=== PATIENT | female | born 1995 | race Caucasian/White ===

== ENCOUNTER 2017-08-11 17:29 | Emergency (ER) | payer OTHER ==
[2017-08-11 17:50] VITALS: TEMP 97.7
--- NOTE | 2017-08-11 18:19 | EDPHY ---
H & P Time Seen by Provider: 08/11/17 18:13 HPI/ROS: CHIEF COMPLAINT: Seizure HISTORY OF PRESENT ILLNESS: The patient is a 21 y/o female arriving via EMS for a witnessed seizure. She had one grand mal seizure in 8th grade attributed to overheating while using too many blankets when she had mono. She had a full workup at the time and was not started on any medications for the seizure. Today , she was sitting outside after class when she had a generalized seizure. She has no memory of the seizure and her next memory is waking up in the hospital. She has jaw pain, hematoma from striking her head, and mild headache. She denies biting her tongue, or any other injuries or symptoms. She has been drinking heavily this weekend and took what she believes is Xanax. She denies recent fever or cold, meth use, or cocaine use. She took Xanax for several years for depression but hadn't recently used Xanax until this weekend. REVIEW OF SYSTEMS: A 10 point review of systems was performed and is negative with the exception of the elements mentioned in the history of present illness. Past Medical/Surgical History: Depression, seizure from overheating Social History: [employer] student, studying [employer], graduating in October Smoking Status: Never smoked Physical Exam: General Appearance: Alert, pleasant, tearful Head: Large hematoma to the left forehead Eyes: Pupils equal and round, no conjunctival pallor or injection ENT, Mouth: Mucous membranes moist, able to open/close mouth fully with minimal discomfort Neck: Normal inspection, NT, ROM without pain Respiratory: Lungs are clear to auscultation, no chest wall tenderness Cardiovascular: Regular rate and rhythm Gastrointestinal: Abdomen is soft and non-tender Neurological: A&O, CN II-Xii intact, motor/sensory intact, normal gait Skin: Warm and dry, no rash Extremities: Nontender, no pedal edema Psychiatric: tearful at times Constitutional: Initial Vital Signs Temperature (C) 36.5 C 08/11/17 17:29 Heart Rate 53 L 08/11/17 17:29 Respiratory Rate 16 08/11/17 17:29 Blood Pressure 116/68 08/11/17 17:29 O2 Sat (%) 99 08/11/17 17:29 O2 Delivery Mode Room Air Allergies/Adverse Reactions: No Known Allergies Allergy (Unverified 07/04/16 16:42) Home Medications: Medication Instructions Recorded Hebert 12/17/15 Zoloft 25mg (*) 08/11/17 Medical Decision Making - Diagnostics Imaging Results: Head CT 08/11/17 18:15 Impression: Normal. Results discussed with Yesica Cantu PA-C. 11 August 2017 at 1908 hours. ED Course/Re-evaluation: The patient presents after a generalized seizure. She is now back to normal mental status and has a normal neuro exam. Seizure most likely secondary to drug use, though given prior sz several years ago, possibly secondary to primary sz disorder. No evidence of fracture or significant injury related to sz. Will obs. Labs/CT ordered. Evaluation, including laboratory analysis and CT scan, unremarkable. Neuro exam remains normal. Seizure precautions given, including instructions not to drive until she is cleared by a neurologist. Differential Diagnosis: Differential diagnosis includes though it is not limited to status epilepticus, hypoglycemia, intracranial hemorrhage, CVA, benzodiazepine withdrawal, alcohol withdrawal, epilepsy. - Data Points Laboratory Results: Laboratory Results 08/11/17 17:40 08/11/17 19:10 Medications Given: Discontinued Medications Sodium Chloride (Ns) 1,000 mls @ 0 mls/hr IV ONCE ONE; Wide Open PRN Reason: Protocol Stop: 08/11/17 18:43 Last Admin: 08/11/17 19:13 Dose: 1,000 mls Departure - Departure Disposition: Home, Routine, Self-Care Clinical Impression: Seizure Condition: Good Instructions: New-Onset Seizure in Adults (ED) Additional Instructions: 1. No driving until you are cleared by a neurologist to drive. 2. No dangerous activities such as riding a ski lift, swimming in a pool or other behavior that could put you or someone else at risk in the event of a recurrent seizure. You will need to be cleared by a neurologist to resume these activities. 3. Please return to the ED for recurrent seizure, headache, numbness, weakness, altered mental status or other concerns. 4. Please call the referral neurologist promptly to schedule a follow-up appointment. Referrals: Brayan Lyons DO [Doctor of Osteopathy] - As per Instructions (Call to make an appointment. ) Report Scribed for: Nova Mathews Report Scribed by: Eli Pearce Date of Report: 08/11/17 Time of Report: 18:19 Physician Review and Approval Statement: 08/11/17 18:19 Portions of this note were transcribed by a medical information specialist. I personally performed a history, physical exam, medical decision making, and confirmed accuracy of information the transcribed note.
[2017-08-11 18:20] LABS: PLATELET COUNT 438 10^3/uL (150-400)
[2017-08-11] MEDS ORDERED: NS 1,000 ML IV ONE (18:42)
[2017-08-11 20:18] VITALS: BP 105/63; PULSE 61; RESP 16; O2SAT 99
== END 2017-08-11 20:33 | disposition home or self-care (01) ==
LOC: EDUNIT#
DX: G40.909 Epilepsy, unspecified, not intractable, without status epilepticus (principal); E86.9 Volume depletion, unspecified
CPT/HCPCS: 80305

== ENCOUNTER 2017-11-12 10:30 | Emergency (ER) | payer OTHER ==
--- NOTE | 2017-11-12 10:41 | EDPHY ---
H & P Smoking Status: Never smoked Time Seen by Provider: 11/12/17 10:31 HPI/ROS: CHIEF COMPLAINT: Altered mental status, substance abuse HISTORY OF PRESENT ILLNESS: 21-year-old female presents to the emergency department by ambulance with altered mental status. The patient was found at a local store and had an antalgic gait and was confused. Upon arrival by EMS, the patient admits to smoking marijuana, abusing cocaine and Xanax over last 3 days. She also admits to drinking alcohol. The patient denies suicidal or homicidal ideation. She states that she does feel depressed. Denies any injuries or trauma. Denies headache. Denies neck or back pain. Denies chest pain or difficulty breathing. REVIEW OF SYSTEMS: Constitutional: No fever, no chills. Eyes: No double or blurry vision. ENT: No sore throat. Respiratory: No cough, no shortness of breath. Cardiac: No chest pain. Gastrointestinal: No abdominal pain, vomiting or diarrhea. Genitourinary: No dysuria. Musculoskeletal: No neck or back pain. Skin: No rashes. Neurological: No headache. (RyderDorcas) Past Medical/Surgical History: Depression, substance abuse (RyderDorcas) Social History: Recent graduate from [employer] (JenaDorcas garcia) Physical Exam: General Appearance: Lethargic, tearful. No visible signs of trauma to her head. She is mentating normally and answering questions appropriately. Eyes: Pupils equal and round. Extraocular motions are all intact. ENT: Mouth: Mucous membranes moist. Respiratory: No wheezing, rhonchi, or rales, lungs are clear to auscultation. Cardiovascular: Regular rate and rhythm. Gastrointestinal: Abdomen is soft and nontender, no masses, no rebound or guarding, bowel sounds normal. Neurological: Alert and oriented x 3, cranial nerves II through XII grossly intact Skin: Warm and dry, no rashes. Musculoskeletal: Nontender to palpate along the cervical, thoracic or lumbar spine. Neck is supple. Extremities: Full range of motion and no peripheral edema. Psychiatric: Patient is oriented X 3, there is no agitation. (RyderDorcas) Constitutional: Initial Vital Signs Temperature (C) 36.5 C 11/12/17 10:42 Heart Rate 115 H 11/12/17 10:42 Respiratory Rate 16 11/12/17 10:42 Blood Pressure 116/67 11/12/17 10:42 O2 Sat (%) 97 11/12/17 10:42 O2 Delivery Mode Room Air Allergies/Adverse Reactions: No Known Allergies Allergy (Unverified 12/17/15 16:42) Home Medications: Medication Instructions Recorded Concerta 12/17/15 Zoloft 25mg (*) 08/11/17 Medical Decision Making ED Course/Re-evaluation: 3:45 p.m.: The patient has been resting for several hours in the emergency department. She is easily arousable. She is drinking juice. She states that she has no complaints. She admits to using cocaine over the weekend. She also states that she recently went through a break-up. She does feel depressed and does see a counselor at [facility], however she does not feel suicidal or homicidal. She was able to ambulate to the bathroom. The patient denies suicidal or homicidal ideation. Declined mental health evaluation. (Dorcas Soler) Work with this patient at 6:30 p.m.. At that time she was asking to go home. She is awake and alert, intermittently tearful. She tells me that she has a lifelong history of depression. She sees a psychiatrist and takes an SSRI and Concerta. In the past she has been prescribed Xanax for anxiety. She is now buying recreationally. She does not recall what happened yesterday, she thinks because of drug use. She cannot find her wallet. She is not suicidal or homicidal. She tells me that this is typical for her. She does not want contact her psychiatrist now. She does not want a mental health evaluation. I do not think that she is a danger to herself or to others but I am concerned that she does not have much in the way of social support. She is comfortable with this services that she is currently using and does not wish for additional recommendations. She assures me that she can care for herself and that the way she feels right now is not different from the way she usually feels. (Sena Muse) Differential Diagnosis: Altered mental status including but not limited to hypoglycemia, infectious process, electrolyte abnormality, head injury and intoxicants. (Dorcas Soler) Care Turn Over: Care will be turned over to Dr. Sena Muse at 5:15 p.m. For disposition and plan. She is awaiting sober ride. (Dorcas Soler) - Data Points Laboratory Results: Laboratory Results 11/12/17 10:35 11/12/17 10:35 Departure - Departure Disposition: Home, Routine, Self-Care Clinical Impression: Substance abuse, Depression Condition: Fair Instructions: Depression (ED), Polysubstance Abuse (ED) Additional Instructions: Follow-up with your therapist at [facility] as discussed. You should not abuse drugs or alcohol. You can return at any time if you feel suicidal. Referrals: [facility] [Outside] - As per Instructions
[2017-11-12 10:47] LABS: PLATELET COUNT 231 10^3/uL (150-400)
--- NOTE | 2017-11-12 10:58 | CPEKG ---
Heart Rate: 65 RR Interval: 923 P-R Interval: 172 QRSD Interval: 102 QT Interval: 436 QTC Interval: 454 P [place]: 71 QRS [place]: -21 T Wave [place]: 17 EKG Severity - OTHERWISE NORMAL ECG - EKG Impression: SINUS RHYTHM EKG Impression: BORDERLINE LEFT AXIS DEVIATION Electronically Signed By: Nova Mathews 12-Nov-2017 13:36:49
[2017-11-12 19:58] VITALS: BP 140/83
== END 2017-11-12 20:11 | disposition home or self-care (01) ==
LOC: EDUNIT#
DX: F32.9 Major depressive disorder, single episode, unspecified (principal); F19.10 Other psychoactive substance abuse, uncomplicated
CPT/HCPCS: 80305; G0480